=== PATIENT | female | born 1970 | race Two or more races ===

== ENCOUNTER 2024-09-05 10:10 | Inpatient (IN) | payer OTHER ==
[~2024-09-05] VITALS: Ht 152.4 cm; Wt 62.4 kg
--- NOTE | 2024-09-05 10:24 | ECG ---
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
[2024-09-05 10:40] LABS: Urine Bacteria None Seen /hpf (None Seen)
--- NOTE | 2024-09-05 10:50 | ED.PDOC ---
History of Present Illness HPI Comments 53F presents to the ER w/ prior SHx of C-sections x2 and the c/c of ABD pain. Pt reports on having epigastric, LUQ, LLQ and RLQ ABD pain which started at 1700 yesterday as well as having N/V. Denies chills, fever, /D, SOB, CP. No other associated symptoms, modifiers, recent injuries or sick contacts present at this time. Chief Complaint: Abdominal Pain Time Seen by MD: 10:40 Reviewed Notes: Nurses Notes, Medications, Allergies Allergies: Coded Allergies: NO KNOWN ALLERGIES (Unverified , 09/05/24) Information Source: Patient Mode of Arrival: Ambulatory Severity: Moderate Timing: Hours Duration: Since onset, Hours Prehospital treatment: None Past Medical History PAST MEDICAL HISTORY: Denies Surgical History: (x2) ORACLE DATABASE ANALYST History: No Pertinent ORACLE DATABASE ANALYST History Family History Family History: Reviewed,noncontributory to illness, Unknown Social History Smoker: Non-Smoker Alcohol: Denies ETOH Use Drugs: Denies Drug Use Lives In: Home Constitutional: denies: chills, diaphoresis, fatigue, fever, malaise, sweats, weakness, others EENTM: denies: blurred vision, double vision, ear bleeding, ear discharge, ear drainage, ear pain, ear ringing, eye pain, eye redness, hearing loss, mouth pain, mouth swelling, nasal discharge, nose bleeding, nose congestion, nose pain, photophobia, tearing, throat pain, throat swelling, voice changes, others Respiratory: denies: cough, hemoptysis, orthopnea, SOB at rest, shortness of breath, SOB with excertion, stridor, wheezing, others Cardiovascular: denies: chest pain, dizzy spells, diaphoresis, Dyspnea on exertion, edema, irregular heart beat, left arm pain, lightheadedness, palpitations, PND, syncope, others Gastrointestinal: reports: abdominal pain, nausea, vomiting; denies: abdomen distended, blood streaked bowels, constipated, diarrhea, dysphagia, difficulty swallowing, hematemesis, melena, poor appetite, poor fluid intake, rectal bleeding, rectal pain, others Genitourinary: denies: abnormal vagina bleeding, burning, dyspareunia, dysuria, flank pain, frequency, hematuria, incontinence, pain, , vagina discharge, urgency, others Neurological: denies: dizziness, fainting, headache, left sided numbness, left sided weakness, numbness, paresthesia, pre-existing deficit, right sided numbness, right sided weakness, seizure, speech problems, tingling, tremors, weakness, others Musculoskeletal: denies: back pain, gout, joint pain, joint swelling, muscle pain, muscle stiffness, neck pain, others Integumetry: denies: bruises, change in color, change in hair/nails, dryness, laceration, lesions, lumps, rash, wounds, others Allergic/Immunocompromised: denies: Difficulty Healing, Frequent Infections, Hives, Itching, others Hematologic/Lymphatic: denies: anemia, blood clots, easy bleeding, easy br uising, swollen glands, others Endocrine: denies: excessive hunger, excessive sweating, excessive thirst, excessive urination, flushing, intolerance to cold, intolerance to heat, unexplained weight gain, unexplained weight loss, others Psychiatric: denies: anxiety, bipolar disorder, depression, hopeless, panic disorder, schizophrenia, sleepless, suicidal, others All Other Systems: Reviewed and Negative Physical Exam General Appearance: Moderate Distress, Normal HEENT: Normal ENT Inspection, Pharynx Normal, TMs Normal Neck: Full Range of Motion, Non-Tender, Normal, Normal Inspection Respiratory: Chest Non-Tender, Lungs Clear, No Accessory Muscle Use, No Respiratory Distress, Normal Breath Sounds Cardiovascular: No Edema, No JVD, No Murmur, No Gallop, Normal Peripheral Pulses, Regular Rate/Rhythm Breast Exam: Deferred Gastrointestinal: Diffuse, No Organomegaly, No Pulsatile Mass, Normal Bowel Sounds, Soft Genitalia: Deferred Pelvic: Deferred Rectal: Deferred Extremities: No calf tenderness, Normal capillary refill, Normal inspection, Normal range of motion, Non-tender, No pedal edema Musculoskeletal : Apperance: Normal Neurologic: Alert, applications intern II-XII nml as Tested, No Motor Deficits, Normal Affect, Normal Mood, No Sensory Deficits Cerebellar Function: Normal Reflexes: Normal Skin: Dry, Normal Color, Warm Peripheral Pulses: 3+ Radial (R), 3+ Radial (L) Lymphatic: No Adenopathy Was a procedure done? Was a procedure done?: No EKG EKG : Pulse Rate (adult): 130 Crystal: Normal Cardiac Rhythm: NSR Block: None Hypertrophy: None ST: Normal Differential Dx Considerations may include: Colitis Electrolyte imbalance X-Ray, Labs, Meds, VS Vital Signs Date Time Temp Pulse Resp B/P (MAP) Pulse Ox O2 Delivery O2 Flow Rate FiO2 09/05/24 12:36 123 20 95 Room Air* 0 21 09/05/24 12:35 123 18 105/72 09/05/24 12:06 99.0 118 16 115/63 (80) 96 99.0 09/05/24 10:50 130 09/05/24 10:42 99.5 114 20 114/77 (89) 97 99.5 09/05/24 10:19 99.0 119 18 118/77 (91) 97 99.0 09/05/24 10:18 130 Lab Test 09/05/24 10:45 09/05/24 10:37 Range/Units White Blood Count 14.4 H 4.4-10.8 10^3/uL Red Blood Count 4.92 4.0-5.20 10^6/uL Hemoglobin 14.6 12.2-16.2 g/dL Hematocrit 43.4 36.0-46.0 % Mean Corpuscular Volume 88.3 80.0-100.0 fL Mean Corpuscular Hemoglobin 29.7 28.0-32.0 pg Mean Corpuscular Hemoglobin Concent 33.7 32.0-36.0 g/dL Red Cell Distribution Width 13.3 11.8-14.3 % Platelet Count 279 140-450 10^3/uL Mean Platelet Volume 8.9 6.9-10.8 fL Neutrophils (%) (Auto) 81.8 H 37.0-80.0 % Lymphocytes (%) (Auto) 11.9 10.0-50.0 % Monocytes (%) (Auto) 6.1 0.0-12.0 % Eosinophils (%) (Auto) 0.0 0.0-7.0 % Basophils (%) (Auto) 0.2 0.0-2.0 % Neutrophils # (Auto) 11.8 H 1.6-8.6 10 ^3/uL Lymphocytes # (Auto) 1.7 0.4-5.4 10 ^3/uL Monocytes # (Auto) 0.9 0-1.3 10 ^3/uL Eosinophils # (Auto) 0 0-0.8 10 ^3/uL Basophils # (Auto) 0 0-0.2 10 ^3/uL Nucleated Red Blood Cells 0.0 % Sodium Level 136 136-145 mmol/L Potassium Level 3.8 3.5-5.1 mmol/L Chloride Level 102 98-107 mmol/L Carbon Dioxide Level 25 20-31 mmol/L Anion Gap 9 5-15 Blood Urea Nitrogen 10 9-23 mg/dL Creatinine 0.81 0.550-1.02 mg/dL Glomerular Filtration Rate Calc 87 >90 mL/min BUN/Creatinine Ratio 12.3 10.0-20.0 Serum Glucose 116 H 74-106 mg/dL Calcium Level 10.0 8.7-10.4 mg/dL Urine Color Light-yellow Yellow Urine Clarity Clear Clear Urine pH 7.5 5.0-9.0 Urine Specific [place] 1.007 1.001-1.035 Urine Protein Negative Negative Urine Ketones Negative Negative Urine Blood Trace H Negative /uL Urine Nitrite Negative Negative Urine Bilirubin Negative Negative Urine Urobilinogen Normal Negative mg/dL Urine Leukocyte Esterase 2+ Negative /uL Urine RBC 1 0 - 4 /hpf Urine Microscopic WBC 1 0-5 /HPF Urine Squamous Epithelial Cells Few <5 /hpf Urine Bacteria None seen None Seen /hpf Urine Glucose Normal Normal mg/dL Current Medications Medications (Trade) Dose Ordered Sig/[facility] Route Start Time Stop Time Status Last Admin Morphine Sulfate 4 mg ONCE ONCE IV 09/05/24 12:15 09/05/24 12:16 DC 09/05/24 12:35 Ondansetron HCl (Zofran) 4 mg ONCE ONCE IV 09/05/24 12:15 09/05/24 12:16 DC 09/05/24 12:35 Ceftriaxone Sodium 50 ml @ 100 mls/hr ONCE ONCE IV 09/05/24 12:15 09/05/24 12:44 DC 09/05/24 12:34 Metronidazole 100 ml @ 100 mls/hr ONCE ONCE IV 09/05/24 12:15 09/05/24 13:14 DC 09/05/24 12:34 Sodium Chloride 1,000 ml @ 1,000 mls/hr Q1H ONCE IV 09/05/24 12:15 09/05/24 13:14 DC 09/05/24 12:34 Patient alert. Complaining of abdominal pain. WBC elevated. Vitals stable. Answering questions. Ambulating. Continues to have abdominal pain. Urinalysis shows UTI. Establish intravenous access. Was given fluids. Was given Rocephin. Was given Flagyl. Reviewed her history. Explained to the patient. Continue monitoring. CT scan of the abdomen reviewed does show appendicitis. PROCEDURE(s): ABPL - CT AB PEL WO CON-NO ORAL OR IV REASON: colitis ORDER NUMBER(s): [id number], ACCESSION NUMBER(s): [id number] CT CT AB PEL WO CON-NO ORAL OR IV INDICATION: colitis EXAM DATE: 09/05/2024 12:03 PM COMPARISON: None RADIATION DOSE: CTDIvol: 5.6 mGy, DLP: 286.17 mGy*cm PROCEDURE: Helical CT images were obtained of the abdomen and pelvis without IV contrast Sagittal and coronal reconstructions are provided. ORAL CONTRAST: None. ADDITIONAL IMAGES / REFORMATS: None All CT scans at this medical facility are performed using dose modulation techniques as appropriate to a performed exam including the following: Automated exposure control was utilized; adjustment of the MA and/or KV according to patient size; and use of iterative reconstruction technique. FINDINGS: LUNG BASE: Normal. LIVER: Normal. GALLBLADDER AND BILIARY TREE: No calcified gallstones. Normal caliber wall. No intra- or extrahepatic biliary ductal dilation. PANCREAS: Normal. SPLEEN: Normal. BOWEL: Enlarged appendix with adjacent periappendiceal fat stranding is consistent with acute appendicitis. Mild colonic diverticulosis. ADRENALS: Normal. KIDNEYS AND URETER: Normal. BLADDER: Normal. REPRODUCTIVE ORGANS: Normal. LYMPH NODES:No lymphadenopathy. PERITONEUM: No ascites or free air. No other fluid collection. VESSELS: Scattered atherosclerotic calcifications are noted. RETROPERITONEUM: Normal. ABDOMINAL WALL: Normal. BONES: Scattered osseous degenerative changes are noted. IMPRESSION: Enlarged appendix with adjacent periappendiceal fat stranding is consistent with acute appendicitis. Time of 1ST Reevaluation: 11:10 Reevaluation 1ST: Unchanged Patient Education/Counseling: Diagnosis, Treatment, Prognosis Family Education/Counseling: No Family Present Departure 1 Departure Time of Disposition: 12:02 Impression: Primary Impression: Acute appendicitis Qualified Codes: K35.80 - Unspecified acute appendicitis Additional Impression: Acute abdominal pain Disposition: ADMITTED INPATIENT Admit to: Med Surg Condition: Guarded Critical Care Note Critical Care Time?: Yes (45 min-critical care time only) Critical care comment: Continues to have pain start antibiotics possible sepsis Stability Stability form required: No Heart Score Heart Score: Heart Score Response (Comments) Value History N/A 0 EKG N/A 0 Age N/A 0 Risk Factors N/A 0 Troponin N/A 0 Total 0 I personally scribed for FRANCISCA MONIQUE MD ([email or web address]) on 09/05/24 at 10:50. Electronically submitted by Jf Duke ([email or web address]). I personally scribed for FRANCISCA MONIQUE MD ([email or web address]) on 09/05/24 at 13:26. Electronically submitted by Jf Duke ([email or web address]). FRANCISCA MONIQUE MD September 05, 2024 10:50
[2024-09-05 11:03] LABS: Basophils # (auto) 0 10 ^3/uL (0-0.2); Basophils % (auto) 0.2 % (0.0-2.0); Eosinophils # (auto) 0 10 ^3/uL (0-0.8); Hematocrit 43.4 % (36.0-46.0); Hemoglobin 14.6 g/dL (12.2-16.2); Lymphocytes # (auto) 1.7 10 ^3/uL (0.4-5.4); Lymphocytes % (auto) 11.9 % (10.0-50.0); Mean Corpuscular Hemoglobin 29.7 pg (28.0-32.0); Mean Corpuscular Hgb Conc. 33.7 g/dL (32.0-36.0); Mean Corpuscular Volume 88.3 fL (80.0-100.0); Monocytes # (auto) 0.9 10 ^3/uL (0-1.3); Monocytes % (auto) 6.1 % (0.0-12.0); Neutrophils # (auto) 11.8 10 ^3/uL (1.6-8.6); Neutrophils % (auto) 81.8 % (37.0-80.0); Platelet Count (auto) 279 10^3/uL (140-450); Red Blood Cells 4.92 10^6/uL (4.0-5.20); Red Cell Distribution Width 13.3 % (11.8-14.3); White Blood Cell 14.4 10^3/uL (4.4-10.8)
[2024-09-05 11:13] LABS: Chloride 102 mmol/L (98-107); Potassium 3.8 mmol/L (3.5-5.1)
[2024-09-05 11:14] LABS: Anion Gap 9 (5-15); Carbon Dioxide 25 mmol/L (20-31)
[2024-09-05 11:17] LABS: Sodium 136 mmol/L (136-145)
[2024-09-05 11:20] LABS: BUN/Creatinine Ratio 12.3 (10.0-20.0); Blood Urea Nitrogen 10 mg/dL (9-23)
[2024-09-05 11:21] LABS: Glucose 116 mg/dL (74-106)
[2024-09-05 11:30] LABS: Urine Blood TRACE /uL (Negative); Urine Clarity Clear (Clear); Urine Color Light-Yellow (Yellow); Urine Protein, UAD Negative (Negative); Urine Specific Gravity 1.007 (1.001-1.035); Urine Squamous Epithelial Cell FEW /hpf (<5); Urine Urobilinogen Normal (Negative); Urine WBC 1 /HPF (0-5); Urine pH 7.5 (5.0-9.0)
[2024-09-05] MEDS: cefTRIAXone 1GM/50ML D5W 50 ML IV ONE (12:34)
[2024-09-05] MEDS: metroNIDAZOLE 500MG/100ML 100 ML IV ONE (12:34)
[2024-09-05] MEDS: SODIUM CHLORIDE 0.9% 1,000 ML IV ONE (12:34)
[2024-09-05] MEDS: ONDANSETRON HCL 4 MG/2 ML VIAL IV ONE (12:35)
[2024-09-05] MEDS: MORPHINE SULFATE 4 MG/ML SYR/VIAL IV ONE (12:35)
[2024-09-05 12:36] VITALS: PULSE 123; RESP 20; O2SAT 95
--- NOTE | 2024-09-05 13:15 | DVH ---
CT CT AB PEL WO CON-NO ORAL OR IV INDICATION: colitis EXAM DATE: 09/05/2024 12:03 PM COMPARISON: None RADIATION DOSE: CTDIvol: 5.6 mGy, DLP: 286.17 mGy*cm PROCEDURE: Helical CT images were obtained of the abdomen and pelvis without IV contrast Sagittal and coronal reconstructions are provided. ORAL CONTRAST: None. ADDITIONAL IMAGES / REFORMATS: None All C T scans at this medical facility are performed using dose modulation techniques as appropriate to a p erformed exam including the following: Automated exposure control was utilized; adjustment of the MA and/or KV according to patient size; and use of iterative reconstruction technique. FINDINGS: LUNG BASE: Normal. LIVER: Normal. GALLBLADDER AND BILIARY TREE: No calcified gallstones. Normal caliber wall. No intra- or extrahepatic biliary ductal dilation. PANCREAS: Normal. SPLEEN: Normal. BOWEL: Enlarged appendix with adjacent periappendiceal fat stranding is consistent with acute appendi citis. Mild colonic diverticulosis. ADRENALS: Normal. KIDNEYS AND URETER: Normal. BLADDER: Normal. REPRODUCTIVE ORGANS: Normal. LYMPH NODES:No lymphadenopathy. PERITONEUM: No ascites or free air. No other fluid collection. VESSELS: Scattered atherosclerotic calcifications are noted. RETROPERITONEUM: Normal. ABDOMINAL WALL: Normal. BONES: Scattered osseous degenerative changes are noted. IMPRESSION: Enlarged appendix with adjacent periappendiceal fat stranding is consistent with acute appendicitis.
[2024-09-05] MEDS ORDERED: NITROGLYCERIN 0.4 MG SL TAB SL PRN (13:45)
[2024-09-05] MEDS ORDERED: MORPHINE SULFATE INJ 2 MG/ml SYRG IV PRN ×2 (13:45)
[2024-09-05] MEDS: metroNIDAZOLE 500MG/100ML 100 ML IV SCH (14:00)
--- NOTE | 2024-09-05 15:03 | DVHHP2 ---
History of Present Illness History of Present Illness 53-year-old female with a history of C-sections x2 presents to the emergency room or epigastric pain with associated nausea and vomiting patient denies any fevers chills or chest pain. Review of Systems Constitutional: No: Fever, Chills, Sweats, Weakness, Malaise, Other Gastrointestinal: Nausea, Vomiting, Abdominal Pain Genitourinary: No Dysuria, No Frequency, No Incontinence, No Hematuria, No Retention, No Other Allergies: Coded Allergies: NO KNOWN ALLERGIES (Unverified , 09/05/24) Medications Current Medications Medications Dose Ordered Sig/Arturo Route Start Time Stop Time Status Last Admin Dose Admin Enoxaparin Sodium 30 mg DAILY SC 09/06/24 10:00 Cancel Acetaminophen 650 mg Q6HP PRN PO 09/05/24 13:45 Morphine Sulfate 2 mg Q4HPRN PRN IV 09/05/24 13:45 Nitroglycerin 0.4 mg Q5MINP PRN SL 09/05/24 13:45 Morphine Sulfate 2 mg Q30M PRN IV 09/05/24 13:45 Metronidazole 100 ml @ 100 mls/hr Q8HR IV 09/05/24 14:00 Ceftriaxone Sodium 50 ml @ 100 mls/hr DAILY@09 IV 09/06/24 09:00 Enoxaparin Sodium 40 mg DAILY SC 09/06/24 10:00 Exam Vital Signs Vital Signs Date Time Temp Pulse Resp B/P (MAP) Pulse Ox O2 Delivery O2 Flow Rate FiO2 09/05/24 14:13 99.3 111 17 102/63 (76) 96 99.3 09/05/24 13:37 Room Air 09/05/24 12:36 0 21 General Appearance: Alert, Oriented X3 Respiratory: Clear to auscultation, Normal air movement Cardiovascular: Regular rate, Normal S1, Normal S2, No murmurs Abdominal: Normal bowel sounds, Soft, No tenderness, No hepatospenomegaly Labs/Xrays Labs Test 09/05/24 13:55 09/05/24 10:45 09/05/24 10:37 Range/Units Lactic Acid Level 0.8 0.4-2.0 mmol/L White Blood Count 14.4 H 4.4-10.8 10^3/uL Red Blood Count 4.92 4.0-5.20 10^6/uL Hemoglobin 14.6 12.2-16.2 g/dL Hematocrit 43.4 36.0-46.0 % Mean Corpuscular Volume 88.3 80.0-100.0 fL Mean Corpuscular Hemoglobin 29.7 28.0-32.0 pg Mean Corpuscular Hemoglobin Concent 33.7 32.0-36.0 g/dL Red Cell Distribution Width 13.3 11.8-14.3 % Platelet Count 279 140-450 10^3/uL Mean Platelet Volume 8.9 6.9-10.8 fL Neutrophils (%) (Auto) 81.8 H 37.0-80.0 % Lymphocytes (%) (Auto) 11.9 10.0-50.0 % Monocytes (%) (Auto) 6.1 0.0-12.0 % Eosinophils (%) (Auto) 0.0 0.0-7.0 % Basophils (%) (Auto) 0.2 0.0-2.0 % Neutrophils # (Auto) 11.8 H 1.6-8.6 10 ^3/uL Lymphocytes # (Auto) 1.7 0.4-5.4 10 ^3/uL Monocytes # (Auto) 0.9 0-1.3 10 ^3/uL Eosinophils # (Auto) 0 0-0.8 10 ^3/uL Basophils # (Auto) 0 0-0.2 10 ^3/uL Nucleated Red Blood Cells 0.0 % Sodium Level 136 136-145 mmol/L Potassium Level 3.8 3.5-5.1 mmol/L Chloride Level 102 98-107 mmol/L Carbon Dioxide Level 25 20-31 mmol/L Anion Gap 9 5-15 Blood Urea Nitrogen 10 9-23 mg/dL Creatinine 0.81 0.550-1.02 mg/dL Glomerular Filtration Rate Calc 87 >90 mL/min BUN/Creatinine Ratio 12.3 10.0-20.0 Serum Glucose 116 H 74-106 mg/dL Calcium Level 10.0 8.7-10.4 mg/dL Urine Color Light-yellow Yellow Urine Clarity Clear Clear Urine pH 7.5 5.0-9.0 Urine Specific [place] 1.007 1.001-1.035 Urine Protein Negative Negative Urine Ketones Negative Negative Urine Blood Trace H Negative /uL Urine Nitrite Negative Negative Urine Bilirubin Negative Negative Urine Urobilinogen Normal Negative mg/dL Urine Leukocyte Esterase 2+ Negative /uL Urine RBC 1 0 - 4 /hpf Urine Microscopic WBC 1 0-5 /HPF Urine Squamous Epithelial Cells Few <5 /hpf Urine Bacteria None seen None Seen /hpf Urine Glucose Normal Normal mg/dL Assessment/Plan Assessment/Plan 1. Acute abdominal pain related to acute appendicitis IV antibiotics, surgical consult, IV fluids 2. Sepsis due to acute appendicitis IV antibiotics, IV fluids Plan discussed with: Patient My Orders Orders - JHOANA ARMSTRONG Procedure Category Date Status Time Blood Culture MARY 09/05/24 In Process 13:43 Admit ADMIT 09/05/24 Transmitted 13:44 Allergies DAYANA 09/05/24 In Process 13:44 Code Status CODE 09/05/24 Transmitted 13:44 Npo (Nothing By DIET 09/05/24 Transmitted Mouth) Diet Dinner Acetaminophen Tablet PHA 09/05/24 In Process (Tylenol Tablet) 13:45 Morphine Sulfate PHA 09/05/24 In Process Injection 13:45 Nitroglycerin PHA 09/05/24 In Process Sublingual (Ntrostat 13:45 Morphine Sulfate PHA 09/05/24 In Process Injection 13:45 Stat Ekg For Chest DAYANA 09/05/24 In Process Pain 13:44 Notify Md Of Changes DAYANA 09/05/24 In Process From Base 13:44 Technical Applications Specialist For DAYANA 09/05/24 In Process 24 Hours 13:44 Emergency Dysrhythmia DAYANA 09/05/24 In Process Protocol 13:44 Rhythm Strips Once DAYANA 09/05/24 In Process Every Shift 13:44 Oxygen By Nasal RT 09/05/24 Transmitted Cannula 13:44 * Surgical Consult CONS 09/05/24 Transmitted Metronidazole PHA 09/05/24 In Process 500mg/100ml (Flagyl 14:00 Ceftriaxone 1gm/50ml PHA 09/06/24 In Process D5w (Rocephin) 09:00 Enoxaparin Sodium PHA 09/06/24 In Process (Lovenox) 10:00 NS PHA 09/05/24 Transmitted 15:15 Date of Service: September 05, 2024 Billing Provider: BART MILES MD Common Visit Codes: [id number] INP/OBS CARE (MOD) JHOANA ARMSTRONG September 05, 2024 15:03
[2024-09-05] MEDS ORDERED: fentaNYL CITRATE 100 MCG/2 ML VL ONE (15:55)
[2024-09-05] MEDS ORDERED: MIDAZOLAM HCL 2MG/2ML 2ml VIAL (1mg/ml) ONE (15:55)
[2024-09-05] MEDS ORDERED: ROCURONIUM 10MG/ML 10ML VIAL IV ONE (15:56)
[2024-09-05] MEDS ORDERED: LIDOCAINE HCL 100 MG/5ML (2%) SYRG INJ IV ONE (15:56)
[2024-09-05] MEDS ORDERED: PROPOFOL 10 MG/ML 20 ML IV ONE (15:56)
--- NOTE | 2024-09-05 15:59 | DVHINCON2 ---
Date of service: September 05, 2024 Allergies: Coded Allergies: NO KNOWN ALLERGIES (Unverified , 09/05/24) Current Medications Current Medications Medications (Trade) Dose Ordered Sig/Arturo Route PRN Reason Start Time Stop Time Status Last Admin Enoxaparin Sodium (Lovenox) 30 mg DAILY SC 09/06/24 10:00 Cancel Acetaminophen (Tylenol Tablet) 650 mg Q6HP PRN PO PAIN SCALE 1-3 OR TEMP>100.4 09/05/24 13:45 Morphine Sulfate 2 mg Q4HPRN PRN IV SEVERE PAIN (7-10 PAIN SCALE) 09/05/24 13:45 Nitroglycerin (Ntrostat Sublingual) 0.4 mg Q5MINP PRN SL FOR CHEST PAIN 09/05/24 13:45 Morphine Sulfate 2 mg Q30M PRN IV FOR CHEST PAIN 09/05/24 13:45 Metronidazole 100 ml @ 100 mls/hr Q8HR IV 09/05/24 14:00 Ceftriaxone Sodium 50 ml @ 100 mls/hr DAILY@09 IV 09/06/24 09:00 Enoxaparin Sodium (Lovenox) 40 mg DAILY SC 09/06/24 10:00 Sodium Chloride 1,000 ml @ 100 mls/hr Q10H IV 09/05/24 15:15 Hydromorphone HCl (Dilaudid Injection) 0.5 mg Q2HP PRN IV SEVERE PAIN (7-10 PAIN SCALE) 09/05/24 16:00 09/05/24 16:01 UNV Hydromorphone HCl (Dilaudid Injection) 0.5 mg Q10M PRN IV SEVERE PAIN (7-10 PAIN SCALE) 09/05/24 16:00 09/05/24 16:41 UNV Hydromorphone HCl (Dilaudid Injection) 0.25 mg Q10M PRN IV MODERATE PAIN (4-6 PAIN SCALE) 09/05/24 16:00 09/05/24 16:31 UNV Vital Signs Vital Signs Date Time Temp Pulse Resp B/P (MAP) Pulse Ox O2 Delivery O2 Flow Rate FiO2 09/05/24 14:13 99.3 111 17 102/63 (76) 96 99.3 09/05/24 13:37 Room Air 09/05/24 12:36 0 21 Labs/Diagnostic Data Labs Test 09/05/24 13:55 09/05/24 10:45 09/05/24 10:37 Range/Units Lactic Acid Level 0.8 0.4-2.0 mmol/L White Blood Count 14.4 H 4.4-10.8 10^3/uL Red Blood Count 4.92 4.0-5.20 10^6/uL Hemoglobin 14.6 12.2-16.2 g/dL Hematocrit 43.4 36.0-46.0 % Mean Corpuscular Volume 88.3 80.0-100.0 fL Mean Corpuscular Hemoglobin 29.7 28.0-32.0 pg Mean Corpuscular Hemoglobin Concent 33.7 32.0-36.0 g/dL Red Cell Distribution Width 13.3 11.8-14.3 % Platelet Count 279 140-450 10^3/uL Mean Platelet Volume 8.9 6.9-10.8 fL Neutrophils (%) (Auto) 81.8 H 37.0-80.0 % Lymphocytes (%) (Auto) 11.9 10.0-50.0 % Monocytes (%) (Auto) 6.1 0.0-12.0 % Eosinophils (%) (Auto) 0.0 0.0-7.0 % Basophils (%) (Auto) 0.2 0.0-2.0 % Neutrophils # (Auto) 11.8 H 1.6-8.6 10 ^3/uL Lymphocytes # (Auto) 1.7 0.4-5.4 10 ^3/uL Monocytes # (Auto) 0.9 0-1.3 10 ^3/uL Eosinophils # (Auto) 0 0-0.8 10 ^3/uL Basophils # (Auto) 0 0-0.2 10 ^3/uL Nucleated Red Blood Cells 0.0 % Sodium Level 136 136-145 mmol/L Potassium Level 3.8 3.5-5.1 mmol/L Chloride Level 102 98-107 mmol/L Carbon Dioxide Level 25 20-31 mmol/L Anion Gap 9 5-15 Blood Urea Nitrogen 10 9-23 mg/dL Creatinine 0.81 0.550-1.02 mg/dL Glomerular Filtration Rate Calc 87 >90 mL/min BUN/Creatinine Ratio 12.3 10.0-20.0 Serum Glucose 116 H 74-106 mg/dL Calcium Level 10.0 8.7-10.4 mg/dL Urine Color Light-yellow Yellow Urine Clarity Clear Clear Urine pH 7.5 5.0-9.0 Urine Specific [place] 1.007 1.001-1.035 Urine Protein Negative Negative Urine Ketones Negative Negative Urine Blood Trace H Negative /uL Urine Nitrite Negative Negative Urine Bilirubin Negative Negative Urine Urobilinogen Normal Negative mg/dL Urine Leukocyte Esterase 2+ Negative /uL Urine RBC 1 0 - 4 /hpf Urine Microscopic WBC 1 0-5 /HPF Urine Squamous Epithelial Cells Few <5 /hpf Urine Bacteria None seen None Seen /hpf Urine Glucose Normal Normal mg/dL Assessment [id number] AC APPENDICITIS LAP/OPEN APPENDECTOMY Plan discussed with: Other OSMEL MILIAN MD September 05, 2024 15:59
[2024-09-05] MEDS ORDERED: ONDANSETRON HCL 4 MG/2 ML VIAL IV ONE (16:00)
[2024-09-05] MEDS ORDERED: HYDROmorphone HCL 2 MG/ML VL/or syr IV PRN ×3 (16:00)
[2024-09-05] MEDS ORDERED: HYDROmorphone HCL 2 MG/ML VL/or syr ONE (16:26)
[2024-09-05] MEDS ORDERED: SUGAMMADEX 200mg/2ml Vial (100MG/ML) IV ONE (16:40)
[2024-09-05] MEDS: BUPIVACAINE HCL 0.25% P/F 10 ML VIAL ONE (16:58)
--- NOTE | 2024-09-05 17:03 | DVHOP2 ---
Operative Report [id number] AC APPENDICITIS INTRABD ABSCESS DRAINAGE OF INTRAABD ABSCESS LAP APPENDECTOMY EBL 5 CC NO DRAINS NO COMPLICATIONS OSMEL MILIAN MD September 05, 2024 17:03
[2024-09-05 17:05] VITALS: O2SAT 95
--- NOTE | 2024-09-05 17:53 | DVHOP ---
DATE OF SURGERY: 09/05/2024 PREOPERATIVE DIAGNOSES: * Acute appendicitis. * Intra-abdominal abscess with pelvic abscess. POSTOPERATIVE DIAGNOSES: * Acute appendicitis. * Intra-abdominal abscess with pelvic abscess. PROCEDURE: Drainage of intra-abdominal abscess and pelvic abscess with laparoscopic appendectomy. SURGEON: Mike Arguello MD BUSINESS LAW TEACHER: None. ANESTHESIA: General. ESTIMATED BLOOD LOSS: Close to 5 mL. . DRAINS: No drains were used. COMPLICATIONS: No complications encountered. DESCRIPTION OF PROCEDURE: The patient was prepped and draped in the usual sterile fashion in the supine position. A supraumbilical incision was applied and was taken down to the fascia. The Veress needle was introduced and CO2 insufflation was started at a pressure of 15 mmHg. The needle was withdrawn, replaced by a 10 mm trocar ____ was released and the appendix was found to be acutely inflamed, distended with a small bowel loop right next to it that was released. Two 5 mm ports were applied more inferiorly, one above the symphysis. The third made between the upper two and the patient was placed in Trendelenburg and right upper lateral position. The abscess was drained out. The mesoappendix was clipped at the base, divided distal to that using Harmonic device. The base of the appendix was cleared for transection using the Endo SHU stapling device. The appendix released in this fashion and was retrieved from the supraumbilical wound in an EndoCatch bag without any complication. Hemostasis was secured. Irrigation fluid was removed. The port sites were free from bleeding. EndoClose suture was used for the fascial closure of the supraumbilical wound. All the ports were withdrawn. After all, the CO2 was let out and the patient was placed back supine. The wound was then brought together using 3-0 Monocryl suture in a subcuticular fashion. Surgical glue was applied. The patient tolerated the procedure well. She was taken back to the recovery room in a stable condition. MD LIAM Baez/WHIT/TORI TID: [id number] RECEIPT: [id number] cc:
[2024-09-05 18:06] VITALS: RESP 17
[2024-09-05] MEDS ORDERED: METOCLOPRAMIDE HCL 5MG/ml INJ 2ml VIAL IV ONE (18:09)
[2024-09-05 20:00] VITALS: PULSE 74; RESP 14; O2SAT 97
[2024-09-05 21:00] VITALS: BP 96/55; PULSE 74; RESP 14; TEMP 97.9; O2SAT 97
[2024-09-05] MEDS: SODIUM CHLORIDE 0.9% 1,000 ML IV SCH (21:13)
--- NOTE | 2024-09-05 21:34 | DVHINCON2 ---
DATE OF CONSULTATION: 09/05/2024 HISTORY OF PRESENT ILLNESS: A 53 years old, coming in with right lower abdominal pain, started yesterday. Some nausea and vomiting. No constipation or diarrhea. No hematemesis or melena. No fever or chills. PAST MEDICAL HISTORY: No diabetes, hypertension. PAST SURGICAL HISTORY: x2. PHYSICAL EXAMINATION: VITAL SIGNS: On examination, afebrile. Stable signs. GENERAL: No evidence of pallor, cyanosis or jaundice. NECK: Neck is supple and nontender with no thyromegaly or lymphadenopathy. CHEST AND LUNGS: Clear. HEART: Within normal limits. ABDOMEN: Soft. Tender in the right lower quadrant. Evidence of rebound. EXTREMITIES: Unremarkable. NEUROLOGIC: Intact. CLINICAL IMPRESSION: Acute appendicitis. PLAN: Laparoscopic possible open appendectomy. Benefits were discussed and consent obtained. MD LIAM Baez/VALENTINE/MATT TID: [id number] RECEIPT: [id number] cc:
[2024-09-06] VITALS (7 sets, daily range): BP systolic 85–94; BP diastolic 48–59; PULSE 73–88; RESP 16–20; TEMP 97.9–98.5; O2SAT 94–100
[2024-09-06] MEDS: ACETAMINOPHEN 325 MG TAB PO PRN (05:10)
[2024-09-06 08:44] LABS: Basophils # (auto) 0 10 ^3/uL (0-0.2); Basophils % (auto) 0.1 % (0.0-2.0); Eosinophils # (auto) 0 10 ^3/uL (0-0.8); Hematocrit 34.4 % (36.0-46.0); Hemoglobin 11.5 g/dL (12.2-16.2); Lymphocytes # (auto) 1.4 10 ^3/uL (0.4-5.4); Lymphocytes % (auto) 12.3 % (10.0-50.0); Mean Corpuscular Hemoglobin 29.7 pg (28.0-32.0); Mean Corpuscular Hgb Conc. 33.5 g/dL (32.0-36.0); Mean Corpuscular Volume 88.7 fL (80.0-100.0); Monocytes # (auto) 0.5 10 ^3/uL (0-1.3); Monocytes % (auto) 4.6 % (0.0-12.0); Neutrophils # (auto) 9.2 10 ^3/uL (1.6-8.6); Platelet Count (auto) 205 10^3/uL (140-450); Red Blood Cells 3.88 10^6/uL (4.0-5.20); Red Cell Distribution Width 13.6 % (11.8-14.3)
[2024-09-06 09:03] LABS: Albumin 3.4 g/dL (3.2-4.8); Alkaline Phosphatase 56 U/L (46-116); Anion Gap 9 (5-15); BUN/Creatinine Ratio 14.8 (10.0-20.0); Blood Urea Nitrogen 9 mg/dL (9-23); Calcium 8.9 mg/dL (8.7-10.4); Carbon Dioxide 22 mmol/L (20-31); Glucose 99 mg/dL (74-106); Potassium 4.1 mmol/L (3.5-5.1); Sodium 143 mmol/L (136-145)
[2024-09-06 09:04] LABS: Aspartate Aminotransferase 12 U/L (13-40); Bilirubin, Total 0.5 mg/dL (0.2-1.0); Chloride 112 mmol/L (98-107); Total Protein 5.6 g/dL (5.7-8.2)
[2024-09-06] MEDS: cefTRIAXone 1GM/50ML D5W 50 ML IV SCH (09:08)
[2024-09-06] MEDS: ENOXAPARIN SOD 40 MG/0.4 ML SYRINGE SC SCH (09:09)
[2024-09-06 09:18] LABS: Alanine Aminotransferase 23 U/L (7-40)
[2024-09-06] MEDS ORDERED: ENOXAPARIN SOD 30 MG/0.3 ML SYRINGE SC SCH (10:00)
[2024-09-06] MEDS: ALBUMIN 25% 100 ML IV SCH (12:09)
--- NOTE | 2024-09-06 12:17 | DVHPN2 ---
Progress Note Date Seen: September 06, 2024 Medical Necessity Reason Pt with a Central, PICC or Fol: No Objective vital signs Vital Sign Date Time Temp Pulse Resp B/P (MAP) Pulse Ox O2 Delivery O2 Flow Rate FiO2 09/06/24 09:00 98.3 79 20 85/48 (60) 98 98.3 09/06/24 07:39 Nasal Cannula* 3 32 Total Intake and Output 09/05/24 09/05/24 09/06/24 15:00 23:00 07:00 Intake Total 1150 ml 100 ml 220 ml Balance 1150 ml 100 ml 220 ml medications Current Medications Medications Dose Ordered Sig/Arturo Route Start Time Stop Time Status Last Admin Dose Admin Enoxaparin Sodium 30 mg DAILY SC 09/06/24 10:00 Cancel Acetaminophen 650 mg Q6HP PRN PO 09/05/24 13:45 09/06/24 05:10 650 MG Morphine Sulfate 2 mg Q4HPRN PRN IV 09/05/24 13:45 Nitroglycerin 0.4 mg Q5MINP PRN SL 09/05/24 13:45 Morphine Sulfate 2 mg Q30M PRN IV 09/05/24 13:45 Metronidazole 100 ml @ 100 mls/hr Q8HR IV 09/05/24 14:00 09/06/24 05:02 100 MLS/HR Ceftriaxone Sodium 50 ml @ 100 mls/hr DAILY@09 IV 09/06/24 09:00 09/06/24 09:08 100 MLS/HR Enoxaparin Sodium 40 mg DAILY SC 09/06/24 10:00 09/06/24 09:09 40 MG Sodium Chloride 1,000 ml @ 100 mls/hr Q10H IV 09/05/24 15:15 09/06/24 09:11 100 MLS/HR Albumin Human 100 ml @ 100 mls/hr Q8H IV 09/06/24 11:30 09/07/24 04:29 09/06/24 12:09 100 MLS/HR laboratory and microbiology Laboratory Tests 09/06/24 08:21 Test 09/06/24 08:21 Range/Units Serum Glucose 99 74-106 mg/dL Problem List/Assessment/Plan Problem List/Assessment/Plan AFEBRILE DEHYDRATED N SALINE AND ALBUMIN BEING GIVEN ADVANCE DIET RIC WOUNDS HEALING NO COMPLICATION Plan discussed with: Other My Orders My Orders Orders - OSMEL MILIAN MD Procedure Category Date Status Time Obtain Consent For: ORDERS 09/05/24 Transmitted 15:24 Obtain Consent For DAYANA 09/05/24 In Process Anesthesia 15:24 Clear Liq Diet DIET 09/05/24 Transmitted Dinner OSMEL MILIAN MD September 06, 2024 12:17
--- NOTE | 2024-09-06 14:51 | DVHPN2 ---
Progress Note Date Seen: September 06, 2024 Medical Necessity Reason Pt with a Central, PICC or Fol: No Subjective Patient reports: No new complaints Review of Systems: CVS:Normal, RESPIRATORY:Normal, GI:Normal, :Normal Objective vital signs Vital Sign Date Time Temp Pulse Resp B/P (MAP) Pulse Ox O2 Delivery O2 Flow Rate FiO2 09/06/24 09:00 98.3 79 20 85/48 (60) 98 98.3 09/06/24 07:39 Nasal Cannula* 3 32 Total Intake and Output 09/05/24 09/05/24 09/06/24 15:00 23:00 07:00 Intake Total 1150 ml 100 ml 220 ml Balance 1150 ml 100 ml 220 ml medications Current Medications Medications Dose Ordered Sig/Arturo Route Start Time Stop Time Status Last Admin Dose Admin Enoxaparin Sodium 30 mg DAILY SC 09/06/24 10:00 Cancel Acetaminophen 650 mg Q6HP PRN PO 09/05/24 13:45 09/06/24 05:10 650 MG Morphine Sulfate 2 mg Q4HPRN PRN IV 09/05/24 13:45 Nitroglycerin 0.4 mg Q5MINP PRN SL 09/05/24 13:45 Morphine Sulfate 2 mg Q30M PRN IV 09/05/24 13:45 Metronidazole 100 ml @ 100 mls/hr Q8HR IV 09/05/24 14:00 09/06/24 05:02 100 MLS/HR Ceftriaxone Sodium 50 ml @ 100 mls/hr DAILY@09 IV 09/06/24 09:00 09/06/24 09:08 100 MLS/HR Enoxaparin Sodium 40 mg DAILY SC 09/06/24 10:00 09/06/24 09:09 40 MG Sodium Chloride 1,000 ml @ 100 mls/hr Q10H IV 09/05/24 15:15 09/06/24 09:11 100 MLS/HR Albumin Human 100 ml @ 100 mls/hr Q8H IV 09/06/24 11:30 09/07/24 04:29 09/06/24 12:09 100 MLS/HR Examination: GENERAL:Normal, LUNGS:Normal, CVS:Normal, ABDOMEN:Normal, SKIN:Normal, NEURO:Normal laboratory and microbiology Laboratory Tests 09/06/24 08:21 Test 09/06/24 08:21 Range/Units Serum Glucose 99 74-106 mg/dL Microbiology Date/Time Source Procedure Growth Status 09/05/24 13:50 Blood Blood Culture - Preliminary NO GROWTH AFTER 24 HOURS OF INCUBATION. Resulted Labs and/or images reviewed: Labs reviewed by me, Image(s) reviewed by me Problem List/Assessment/Plan Problem List/Assessment/Plan 1. Acute abdominal pain related to acute appendicitis IV antibiotics, surgical consult, IV fluids 2. Sepsis due to acute appendicitis IV antibiotics, IV fluids Subjective patient is awake and alert Objective: Patient was admitted for acute abdominal pain due to acute appendicitis. Patient was taken to OR yesterday on [address] Tono Arguello and patient underwent appendectomy. Patient tolerated procedure well, patient is passing gas however she has not had a bowel movement. We will advance diet as tolerated we will increase to soft. Patient has been hypotensive today, ordered IV albumin. Plan: Start IV albumin, continue IV fluids, continue IV antibiotics, advance diet as tolerated, possible discharge tomorrow if cleared by surgeon Plan discussed with: Patient My Orders My Orders Orders - JHOANA ARMSTRONG Procedure Category Date Status Time Sodium Chloride 0.9% PHA 09/05/24 In Process 15:15 Albumin 25% (Albutein) PHA 09/06/24 In Process 11:30 Soft Diet DIET 09/06/24 Transmitted Dinner Date of Service: September 06, 2024 Billing Provider: BART MILES MD Common Visit Codes: [id number] INP/OBS CARE (MOD) JHOANA ARMSTRONG September 06, 2024 14:51
[2024-09-07 01:00] VITALS: BP 92/62; PULSE 68; RESP 16; O2SAT 100
[2024-09-07 05:00] VITALS: BP 93/59; PULSE 73; RESP 16; TEMP 97.9; O2SAT 100
[2024-09-07 07:11] LABS: Albumin 4.1 g/dL (3.2-4.8); Alkaline Phosphatase 62 U/L (46-116); Anion Gap 8 (5-15); BUN/Creatinine Ratio 14.1 (10.0-20.0); Blood Urea Nitrogen 11 mg/dL (9-23); Calcium 9.5 mg/dL (8.7-10.4); Carbon Dioxide 26 mmol/L (20-31); Glucose 94 mg/dL (74-106); Potassium 4.1 mmol/L (3.5-5.1); Total Protein 6.1 g/dL (5.7-8.2)
[2024-09-07 07:12] LABS: Alanine Aminotransferase 57 U/L (7-40); Aspartate Aminotransferase 49 U/L (13-40); Bilirubin, Total 0.7 mg/dL (0.2-1.0); Chloride 112 mmol/L (98-107); Sodium 146 mmol/L (136-145)
[2024-09-07 07:15] LABS: Basophils # (auto) 0 10 ^3/uL (0-0.2); Basophils % (auto) 0.6 % (0.0-2.0); Eosinophils # (auto) 0.1 10 ^3/uL (0-0.8); Eosinophils % (auto) 1.8 % (0.0-7.0); Hematocrit 31.5 % (36.0-46.0); Hemoglobin 10.8 g/dL (12.2-16.2); Lymphocytes # (auto) 2.1 10 ^3/uL (0.4-5.4); Lymphocytes % (auto) 30.7 % (10.0-50.0); Mean Corpuscular Hemoglobin 30.7 pg (28.0-32.0); Mean Corpuscular Hgb Conc. 34.1 g/dL (32.0-36.0); Mean Corpuscular Volume 90.1 fL (80.0-100.0); Monocytes # (auto) 0.3 10 ^3/uL (0-1.3); Monocytes % (auto) 5.2 % (0.0-12.0); Neutrophils # (auto) 4.1 10 ^3/uL (1.6-8.6); Neutrophils % (auto) 61.7 % (37.0-80.0); Platelet Count (auto) 175 10^3/uL (140-450); Red Cell Distribution Width 13.7 % (11.8-14.3); White Blood Cell 6.7 10^3/uL (4.4-10.8)
[2024-09-07 09:00] VITALS: BP 109/68; PULSE 72; RESP 17; TEMP 98.7; O2SAT 95
[2024-09-07 13:00] VITALS: BP 108/64; PULSE 67; RESP 16; TEMP 98.3; O2SAT 96
--- NOTE | 2024-09-07 15:03 | DVHPN2 ---
Progress Note - Dictate Medical Necessity Reason Pt with a Central, PICC or Fol: No vital signs Vital Sign Date Time Temp Pulse Resp B/P (MAP) Pulse Ox O2 Delivery O2 Flow Rate FiO2 09/07/24 09:00 98.7 72 17 109/68 (82) 95 98.7 09/06/24 20:00 Room Air* 0 21 Total Intake and Output 09/06/24 09/06/24 09/07/24 15:00 23:00 07:00 Intake Total 600 ml 900 ml Balance 600 ml 900 ml medications Current Medications Medications Dose Ordered Sig/Arturo Route Start Time Stop Time Status Last Admin Dose Admin Enoxaparin Sodium 30 mg DAILY SC 09/06/24 10:00 Cancel Acetaminophen 650 mg Q6HP PRN PO 09/05/24 13:45 09/07/24 12:22 650 MG Morphine Sulfate 2 mg Q4HPRN PRN IV 09/05/24 13:45 Nitroglycerin 0.4 mg Q5MINP PRN SL 09/05/24 13:45 Morphine Sulfate 2 mg Q30M PRN IV 09/05/24 13:45 Metronidazole 100 ml @ 100 mls/hr Q8HR IV 09/05/24 14:00 09/07/24 13:18 100 MLS/HR Ceftriaxone Sodium 50 ml @ 100 mls/hr DAILY@09 IV 09/06/24 09:00 09/07/24 09:06 100 MLS/HR Enoxaparin Sodium 40 mg DAILY SC 09/06/24 10:00 09/07/24 09:05 40 MG Sodium Chloride 1,000 ml @ 100 mls/hr Q10H IV 09/05/24 15:15 09/07/24 07:15 100 MLS/HR laboratory and microbiology Laboratory Tests 09/07/24 05:29 Test 09/07/24 05:29 Range/Units Serum Glucose 94 74-106 mg/dL CIRILO EDMONDSON NP September 07, 2024 15:03
[2024-09-07] MEDS ORDERED: ACET300T58 PO (15:41)
[2024-09-07] MEDS ORDERED: CEPH500C PO (15:41)
--- NOTE | 2024-09-07 15:43 | DVHDS2 ---
Discharge Summary Date of Admission September 05, 2024 at 13:44 Date of Discharge: September 07, 2024 Labs/Diagnostic Data: Laboratory Results Test 09/07/24 05:29 09/05/24 13:55 09/05/24 10:37 White Blood Count 6.7 10^3/uL (4.4-10.8) Red Blood Count 3.50 10^6/uL (4.0-5.20) Hemoglobin 10.8 g/dL (12.2-16.2) Hematocrit 31.5 % (36.0-46.0) Mean Corpuscular Volume 90.1 fL (80.0-100.0) Mean Corpuscular Hemoglobin 30.7 pg (28.0-32.0) Mean Corpuscular Hemoglobin Concent 34.1 g/dL (32.0-36.0) Red Cell Distribution Width 13.7 % (11.8-14.3) Platelet Count 175 10^3/uL (140-450) Mean Platelet Volume 9.7 fL (6.9-10.8) Neutrophils (%) (Auto) 61.7 % (37.0-80.0) Lymphocytes (%) (Auto) 30.7 % (10.0-50.0) Monocytes (%) (Auto) 5.2 % (0.0-12.0) Eosinophils (%) (Auto) 1.8 % (0.0-7.0) Basophils (%) (Auto) 0.6 % (0.0-2.0) Neutrophils # (Auto) 4.1 10 ^3/uL (1.6-8.6) Lymphocytes # (Auto) 2.1 10 ^3/uL (0.4-5.4) Monocytes # (Auto) 0.3 10 ^3/uL (0-1.3) Eosinophils # (Auto) 0.1 10 ^3/uL (0-0.8) Basophils # (Auto) 0 10 ^3/uL (0-0.2) Nucleated Red Blood Cells 0.0 % Sodium Level 146 mmol/L (136-145) Potassium Level 4.1 mmol/L (3.5-5.1) Chloride Level 112 mmol/L (98-107) Carbon Dioxide Level 26 mmol/L (20-31) Anion Gap 8 (5-15) Blood Urea Nitrogen 11 mg/dL (9-23) Creatinine 0.78 mg/dL (0.550-1.02) Glomerular Filtration Rate Calc 91 mL/min (>90) BUN/Creatinine Ratio 14.1 (10.0-20.0) Serum Glucose 94 mg/dL (74-106) Calcium Level 9.5 mg/dL (8.7-10.4) Total Bilirubin 0.7 mg/dL (0.2-1.0) Aspartate Amino Transferase (AST) 49 U/L (13-40) Alanine Aminotransferase (ALT) 57 U/L (7-40) Alkaline Phosphatase 62 U/L (46-116) Total Protein 6.1 g/dL (5.7-8.2) Albumin 4.1 g/dL (3.2-4.8) Lactic Acid Level 0.8 mmol/L (0.4-2.0) Urine Color Light-yellow (Yellow) Urine Clarity Clear (Clear) Urine pH 7.5 (5.0-9.0) Urine Specific [place] 1.007 (1.001-1.035) Urine Protein Negative (Negative) Urine Ketones Negative (Negative) Urine Blood Trace /uL (Negative) Urine Nitrite Negative (Negative) Urine Bilirubin Negative (Negative) Urine Urobilinogen Normal mg/dL (Negative) Urine Leukocyte Esterase 2+ /uL (Negative) Urine RBC 1 /hpf (0 - 4) Urine Microscopic WBC 1 /HPF (0-5) Urine Squamous Epithelial Cells Few /hpf (<5) Urine Bacteria None seen /hpf (None Seen) Urine Glucose Normal mg/dL (Normal) Other Laboratory Tests 09/07/24 05:29 Brief Hx & Hospital Course: 53-year-old female with a history of C-sections x2 presents to the emergency room or epigastric pain with associated nausea and vomiting patient denies any fevers chills or chest pain. Patient was admitted on September 05, 2024 for sepsis related to acute appendicitis. Patient was seen by general surgery and was status post laparoscopic appendectomy. Patient was hypotensive after the surgery and received IV albumin and IV fluids; blood pressure stabilized. Patient was cleared for discharge. She reported flatus and had a bowel movement. She tolerated oral diet. She was discharged home on oral Keflex and pain medication. She was instructed to follow-up with PCP in 1 week and general surgery outpatient in 1 week. There were no complaints or new complaints upon discharge, all questions and concerns were answered. Patient was advised to return to the ER or call 911 if any headaches, dizziness, shortness of breath, chest pain, bleeding, fevers, or worsening of medical condition. Patient/Family was counseled about treatment plan, medications, possible side effects, patient�verbalized understanding. All questions were answered to the best of my ability. The patient symptoms improved and they are okay to be DC. Condition at Discharge: Stable Final Diagnosis/Problems List s/p laparoscopic appendectomy Acute abdominal pain related to acute appendicitis Sepsis due to acute appendicitis Discharge Disposition: Home Discharge Instruct/Medications Diet: Cardiac 2g Na,low cholest Activity: No Restrictions, As Tolerated Follow Up/Referral: pcp 1 week f/u with surgeon Discharge Statement: "Patient was advised to return to the ER or call 911 if any headaches, dizziness, shortness of breath, chest pain, abdominal pain, bleeding, fevers, or worsening of medical condition. Patient was counseled about treatment plan, medications, possible side effects, patient�verbalized understanding. All questions were answered to the best of my ability. This discharge took greater then 30 minutes in planning, reviewing documentation, counseling the patient, and discussing with other team members." ASSESSMENT ASSESSMENT Assessment s/p laparoscopic appendectomy CIRILO EDMONDSON NP September 07, 2024 15:43
[2024-09-07 17:00] VITALS: BP 107/64; PULSE 63; RESP 18; TEMP 97.5; O2SAT 96
[2024-09-07 17:21] VITALS: BP 125/78; PULSE 65; RESP 17; TEMP 36.8; O2SAT 95
== END 2024-09-07 18:10 | disposition home or self-care (01) | DRG 710 ==
LOC: ER 10:10 → OVERFLOW 13:44 → WEST WING 18:00
PROVIDERS: ADMIT Nurse Practitioner Family; ATTEND Nurse Practitioner Family
PROC: 0DTJ4ZZ Resection of Appendix, Percutaneous Endoscopic Approach (ICD-10-PCS; principal; 2024-09-05 16:01)
DX: A41.9 Sepsis, unspecified organism (principal); K35.33 Acute appendicitis with perforation, localized peritonitis, and gangrene, with abscess; N73.9 Female pelvic inflammatory disease, unspecified; E86.0 Dehydration; I95.81 Postprocedural hypotension; Z98.891 History of uterine scar from previous surgery
CPT/HCPCS: 36415; 74176; 80048; 80053; 81001; 83605; 85025; 87040; 93005; 96365; 96368; 99291; G0378; J2250; J2405; J2704; J3490; P9047